=== PATIENT | male | born 1980 | race American Indian/Alaskan Native ===

== ENCOUNTER 2017-11-23 00:46 | Emergency (ER) | payer OTHER ==
[2017-11-23 01:15] VITALS: RESP 20
--- NOTE | 2017-11-23 02:56 | C.PDOC ---
History Of Present Illness 37 y/o male presents to ED for complaints of right 4th toe pain and bleeding that began at 6pm after he was at work and his "foot got stock in a power prabhjot. " Denies ankle pain, foot pain, leg pain, or any other physical complaints. - HPI Time Seen by Provider: 11/23/17 01:21 Chief Complaint (Nursing): Trauma History Per: Patient History/Exam Limitations: no limitations Onset/Duration Of Symptoms: Hrs Injury Occurred (Timing): Hours Ago: Location Of Injury: Right: Foot Recent travel outside of the [place]: No Past Medical History Reviewed: Historical Data, Nursing Documentation, Vital Signs Vital Signs: Last Vital Signs Temp 97.8 F 11/23/17 04:04 Pulse 82 11/23/17 04:04 Resp 20 11/23/17 04:04 BP 148/70 11/23/17 04:04 Pulse Ox 95 11/24/17 06:04 - Medical History PMH: No Chronic Diseases Surgical History: No Surg Hx Family History: States: No Known Family Hx - Social History Hx Alcohol Use: Yes Hx Substance Use: Yes - Immunization History Hx Tetanus Toxoid Vaccination: No Hx Influenza Vaccination: No Hx Pneumococcal Vaccination: No Review Of Systems Constitutional: Negative for: Fever, Chills Gastrointestinal: Negative for: Nausea, Vomiting, Abdominal Pain, Diarrhea Musculoskeletal: Positive for: Other (Right 4th toe pain/ bleeding ) Skin: Negative for: Rash Neurological: Negative for: Weakness, Numbness Physical Exam - Physical Exam Skin: Warm, Dry, Other (1cm linear laceration to lateral aspect of 4th right toe ; no swelling or tenderness) Head: Atraumatic, Normacephalic Eye(s): bilateral: Normal Inspection, PERRL, EOMI Oral Mucosa: Moist Neck: Supple Chest: Symmetrical, No Tenderness Cardiovascular: Rhythm Regular Respiratory: Normal Breath Sounds, No Decreased Breath Sounds, No Rales, No Rhonchi, No Wheezing Extremity: Normal ROM, No Tenderness, No Swelling Pulses: Left Dorsalis Pedis: Normal, Right Dorsalis Pedis: Normal Neurological/Psych: Oriented x3, Normal Speech Gait: Steady ED Course And Treatment O2 Sat by Pulse Oximetry: 95 (RA) Pulse Ox Interpretation: Normal Laceration - Laceration Repair toe laceration Wound Length (In cm): 1 Description Of Wound: Linear Wound Cleansed With: Betadine, Sterile Saline Anesthesia: Lidocaine 1% Wound Examination: Irrigated With Saline, No FB With Wound Exploration Wound Closure: Suture (three ) Suture Technique And Material Used: Running, Nylon Wound Complexity: Simple Medical Decision Making Medical Decision Making: Administered Tylenol. Ordered X-Ray of right foot. Xrays are negative for fracture or foreign body. Disposition - Disposition Referrals: Cortez Cisneros DO [[facility]] - Disposition: HOME/ ROUTINE Disposition Time: 03:48 Condition: GOOD Additional Instructions: keep the wound dry for 2 days. Wash the cut twice a day starting Tuesday with soap and water, then apply bacitracin. Sutures to be removed within 7-10 days. 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 - Scribe Statement The provider has reviewed the documentation as recorded by the Scribchana Connell All medical record entries made by the Scribe were at my direction and personally dictated by me. I have reviewed the chart and agree that the record accurately reflects my personal performance of the history, physical exam, medical decision making, and the department course for this patient. I have also personally directed, reviewed, and agree with the discharge instructions and disposition.
[2017-11-23] MEDS ORDERED: Bacitracin 500 Units/gm Oint Foilpak UD TOP ONE (03:37)
[2017-11-23] MEDS ORDERED: Bacitracin 500 Units/gm Oint Foilpak UD ONE (03:58)
[2017-11-23 04:05] VITALS: BP 148/70; PULSE 82; TEMP 97.8
[2017-11-23 04:08] VITALS: O2SAT 95
--- NOTE | 2017-11-23 09:51 | RAD ---
Date of service: 11/23/2017 PROCEDURE: Right Foot Radiographs. HISTORY: crush injury, pain to 3rd, 4th toes COMPARISON: None. FINDINGS: BONES: No interval acute cardiopulmonary disease appreciated. JOINTS: Normal. SOFT TISSUES: Normal. OTHER FINDINGS: None. IMPRESSION: Unremarkable right foot radiographs.
== END 2017-11-23 04:05 | disposition home or self-care (01) ==
LOC: C.ER 00:46
DX: S91.114A Laceration without foreign body of right lesser toe(s) without damage to nail, initial encounter (principal); W23.0XXA Caught, crushed, jammed, or pinched between moving objects, initial encounter; Y92.89 Other specified places as the place of occurrence of the external cause; Y99.8 Other external cause status